=== PATIENT | female | born 1950 | race Caucasian/White ===

== ENCOUNTER 2018-07-05 10:37 | Day surgery (SDC) | payer MEDICARE, OTHER ==
[~2018-07-05] VITALS: Ht 157.5 cm; Wt 62.7 kg
--- NOTE | ~2018-07-05 | OP ---
PATIENT NAME: VEENA CRUZ MEDICAL RECORD: [id number] :46 LOCATION:[facility] ADMISSION DATE: SURGEON: EMRE BRUNSON MD DATE OF OPERATION: 07/05/2018 PROCEDURES: EGD with biopsy. Colonoscopy without biopsy or polypectomy. SCOPE: Olympus video gastroscope and Olympus video colonoscope. MEDICATIONS: Per TIVA anesthesia. The patient received 550 mg of propofol for this procedure, O2 at 4 liters. INDICATION FOR THE PROCEDURES: History of chronic constipation and history of colon polyps. Of note, the patient's last colonoscopy was done by Dr. Lm Olivo in 2017. She had removal at the time of a large polyp. The reason for the EGD is gastroesophageal reflux disease. EGD FINDINGS: Informed consent was given. The patient was made comfortable with the above medications. After reaching an adequate level of sedation by slow IV push, the patient was placed on her left side. The endoscope was then advanced under direct visualization through the posterior pharyngeal area and advanced to the distal esophagus. A 4-cm segment of severe distal ulcerated esophageal tissue was appreciated. Multiple biopsies were obtained. This also could be in the setting of Patel's esophagus. Also noted was a nonstenotic Schatzki's ring followed by a small hiatal hernia, which was seen both on direct and retroflex view. On entering the stomach, mild inflammation was seen throughout. No ulcers or erosions. A Helicobacter pylori histopathology biopsy was taken at the antral area. We then proceeded to the duodenal bulb, where mild inflammation was noted. I proceeded down the C-loop past the ampulla. At 55 cm within the duodenum, a 2.5-cm irregularly-shaped polyp was noted. Biopsies were obtained. At 95 cm within the small bowel, a 1-cm polyp was appreciated and biopsies were taken of this lesion. The scope was then withdrawn. IMPRESSION: 1. A 4-cm segment of severe distal ulcerated esophagitis. 2. Nonstenotic Schatzki's ring. 3. Small hiatal hernia. 4. Mild gastritis. Biopsy taken at the antral area. 5. Two polyps noted distal to the ampulla. The first at 55 cm, which was 2.5 cm in size, biopsied; and the second was at 95 cm within the small bowel. This polyp was 1 cm in size and biopsies were obtained. The patient also had mild duodenitis. PLAN: 1. The patient should follow reflux precautions stringently, both dietary and positional. She should avoid chocolate, tomato, citrus, caffeine, fatty foods, peppermint if they are problematic. She also should refrain from any alcohol or tobacco use. The patient should not eat late at night and should sit up for 2 hours after every meal. If she refluxes during nighttime hours, she is at risk for aspiration and she should sleep with the head of the bed elevated. She should have a light dinner and a heavier breakfast and lunch. OPERATIVE REPORT [id number] CLIFF CRUZKiran RODERICK 2. We will start the patient on omeprazole at 20 mg p.o. q.a.m. and famotidine 40 mg p.o. at bedtime. We will also add sucralfate at 1 gram p.o. q.i.d. 3. EGD in 8 weeks to document healing of ulcers. COLONOSCOPY WITHOUT BIOPSY OR POLYPECTOMY: After completion of the EGD part of the procedure, the patient was again positioned on her left side and medications were adjusted for her comfort and safety. The colonoscope was advanced with some difficulty to the cecum, where the ileocecal valve and appendiceal orifice were identified. The small bowel was intubated and examined tissue was normal. This was a technically difficult procedure as the patient had adhesions and also noted was some spasm, most appreciated on the left side of the colon. On withdrawal of the scope, mucosa was carefully inspected and felt to be fairly normal. On retroflexion, internal hemorrhoids were observed and it was also noted that the patient has rectal prolapse with very poor sphincter tone. The scope was then withdrawn. IMPRESSION: 1. The patient with a colonoscopy revealing fairly normal tissue throughout. 2. Cecum and appendiceal orifice identified and small bowel intubated with normal tissue found. 3. No polyps, masses, or diverticula were appreciated. 4. Rectal prolapse. 5. Very poor sphincter tone. PLAN: The patient should incorporate a lot of fiber in her diet. She can use MiraLAX on a daily basis if necessary as well as Colace. TRANSINT:[id number] Voice Confirmation ID: [id number] DOCUMENT ID: [id number] EMRE BRUNSON MD CC: ELYSIA JEAN and ETHEL MEJIA MD [id number] DICTATION DATE: 07/05/18 6677 [employer]: 07/05/18 1644 [facility] 07/05/18 [facility] [address] [place] [address]
[2018-07-05 10:58] LABS: HEMATOCRIT 35.3 % (36.0-48.0); HEMOGLOBIN 12.1 g/dL (12-16); MCH 29.4 pg (26.0-34.0); MCHC 34.3 g/dL (31.0-37.0); MCV 85.7 fL (80.0-100.0); MEAN PLATELET VOLUME 9.7 fL (7.4-10.4); RBC 4.12 10x6/uL (4.00-5.40); RDW 14.4 % (11.5-14.5); WBC 19.3 10x3/uL (4.8-10.8)
[2018-07-05] MEDS ORDERED: ZOLOFT100 MG PO (12:56)
[2018-07-05] MEDS ORDERED: ZOCOR10 MG PO (12:57)
[2018-07-05] MEDS ORDERED: NEURONTIN 300300 MG PO (12:57)
[2018-07-05] MEDS ORDERED: KLONOPIN0.5 MG (12:57)
[2018-07-05] MEDS ORDERED: AMOX CLAV (12:58)
[2018-07-05 12:59] VITALS: BP 129/57; Ht 157.5 cm; Wt 62.7 kg
== END 2018-07-05 16:40 | disposition home or self-care (01) ==
LOC: D.OPS 10:37
PROVIDERS: Anesthesiology
DX: K62.3 Rectal prolapse (principal); K22.10 Ulcer of esophagus without bleeding; K44.9 Diaphragmatic hernia without obstruction or gangrene; K22.2 Esophageal obstruction; K29.70 Gastritis, unspecified, without bleeding; K31.7 Polyp of stomach and duodenum